=== PATIENT | male | born 1945 | race Caucasian/White ===

== ENCOUNTER 2018-07-27 17:44 | Emergency (ER) | payer OTHER ==
[~2018-07-27] VITALS: Ht 167.6 cm; Wt 85.6 kg
[2018-07-27 17:46] VITALS: Ht 167.6 cm; Wt 85.6 kg
[2018-07-27] MEDS ORDERED: CEFTRIAXONE 1 GM/50 ML (PMX) 50 ML IVPB STA (19:10)
[2018-07-27] MEDS ORDERED: SOD CHLORIDE 0.9% 1,000 ML IV STA (19:10)
[2018-07-27] MEDS ORDERED: PIPER-TAZO 3.375 GM IV (PMX) 100 ML IVPB STA (19:10)
[2018-07-27] MEDS ORDERED: KETOROLAC 15 MG INJ IV STA (19:10)
[2018-07-27] MEDS ORDERED: OXYC-279 PO (20:48)
[2018-07-27] MEDS ORDERED: IBUP-1542 PO ×2 (20:49→23:18)
[2018-07-27] MEDS ORDERED: EXCED PO (20:49)
[2018-07-27] MEDS ORDERED: CEPH-443 PO (23:18)
[2018-07-27 23:30] VITALS: BP 141/85; PULSE 82; RESP 22
--- NOTE | 2018-07-27 23:36 | ERD ---
ER Documentation Chief Complaint Chief Complaint left knee, red, swollen painful, warm, s/p knee replacement & fall HPI 73-year-old man complains of left knee pain, redness, swelling beginning yesterday and getting worse today. Patient fell about 2 days ago and is status post left total knee arthroplasty 2 months ago. He is able to ambulate but states he has pain with ambulation he denies fevers or chills, no paresis or paresthesias, no purulent discharge from the knee or surgical site, no complaints of chest pain or shortness of breath. ROS All systems reviewed and are negative except as per history of present illness. Medications Home Meds Active Scripts Ibuprofen* (Motrin*) 600 Mg Tab, 600 MG PO Q8 PRN for PAIN AND/OR INFLAMMATION, #30 TAB Prov:DELISA JANSEN MD 07/27/18 Cephalexin* (Keflex*) 500 Mg Capsule, 500 MG PO QID for 5 Days, CAP Prov:DELISA JANSEN MD 07/27/18 Reported Medications Acetaminophen/Aspirin/Caffeine* (Excedrin*) 1 Tab Tab, 1 TAB PO Q6, TAB 07/27/18 Ibuprofen* (Ibuprofen*) 600 Mg Tablet, 600 MG PO Q6H PRN for PAIN LEVEL 6-10, TAB 07/27/18 Oxycodone HCl/Acetaminophen (Percocet 5-325 mg Tablet) 1 Each Tablet, 1 EACH PO Q6 PRN for PAIN LEVEL 6-10, TAB 07/27/18 Allergies Allergies: Coded Allergies: No Known Allergy (Unverified , 07/27/18) PMhx/Soc Medical and Surgical Hx: pt denies Medical Hx History of Surgery: Yes (LEFT TKR, APPENDECTOMY ) Anesthesia Reaction: No Hx Neurological Disorder: No Hx Respiratory Disorders: No Hx Cardiac Disorders: No Hx Psychiatric Problems: No Hx Miscellaneous Medical Probl: No Hx Alcohol Use: No Hx Substance Use: No Hx Tobacco Use: No Smoking Status: Never smoker FmHx Family History: No diabetes Physical Exam Vitals Vital Signs Date Temp Pulse Resp B/P (MAP) Pulse Ox O2 O2 Flow FiO2 Time Delivery Rate 07/27/18 98.4 80 22 150/89 100 Room Air 19:19 (109) 07/27/18 98.8 90 18 164/87 97 17:46 (112) Physical Exam Const: No acute distress, mild discomfort, afebrile Head: Atraumatic Eyes: Normal Conjunctiva ENT: Normal External Ears, Nose and Mouth. Neck: Full range of motion. No meningismus. Resp: Clear to auscultation bilaterally Cardio: Regular rate and rhythm, no murmurs Abd: Soft, non tender, non distended. Normal bowel sounds Skin: Left knee surgical site appears clean and dry without purulent drainage or discharge, around the surgical site is blanching erythema and calor extending up to the mid inner left thigh, Back: No midline or flank tenderness Ext: No cyanosis, or edema, calves are bilaterally symmetrical, distal pulses equal bilateral Neur: Awake and alert x3, no focal deficits or facial asymmetry Psych: Normal Mood and Affect Result Diagram: 07/27/18191907/27/181919 Results 24 hrs Laboratory Tests Test 07/27/18 19:20 White Blood Count 9.6 10^3/ul Red Blood Count 3.91 10^6/ul Hemoglobin 11.2 g/dl Hematocrit 35.8 % Mean Corpuscular Volume 91.6 fl Mean Corpuscular Hemoglobin 28.6 pg Mean Corpuscular Hemoglobin Concent 31.3 g/dl Red Cell Distribution Width 13.9 % Platelet Count 245 10^3/UL Mean Platelet Volume 9.9 fl Immature Granulocytes % 0.500 % Neutrophils % 69.6 % Lymphocytes % 17.2 % Monocytes % 8.3 % Eosinophils % 3.7 % Basophils % 0.7 % Nucleated Red Blood Cells % 0.0 /100WBC Immature Granulocytes # 0.050 10^3/ul Neutrophils # 6.7 10^3/ul Lymphocytes # 1.7 10^3/ul Monocytes # 0.8 10^3/ul Eosinophils # 0.4 10^3/ul Basophils # 0.1 10^3/ul Nucleated Red Blood Cells # 0.0 10^3/ul Erythrocyte Sedimentation Rate 17 mm/Hr Prothrombin Time 13.6 Sec Prothrombin Time Ratio 1.1 INR International Normalized Ratio 1.03 Activated Partial Thromboplast Time 34.0 Sec Sodium Level 140 mmol/L Potassium Level 4.2 mmol/L Chloride Level 106 mmol/L Carbon Dioxide Level 28 mmol/L Anion Gap 6 Blood Urea Nitrogen 33 mg/dl Creatinine 1.11 mg/dl Est Glomerular Filtrat Rate mL/min mL/min Glucose Level 98 mg/dl Calcium Level 9.1 mg/dl Total Bilirubin 0.2 mg/dl Direct Bilirubin 0.00 mg/dl Indirect Bilirubin 0.2 mg/dl Aspartate Amino Transf (AST/SGOT) 20 IU/L Alanine Aminotransferase (ALT/SGPT) 21 IU/L Alkaline Phosphatase 82 IU/L C-Reactive Protein 6.6 mg/dl Total Protein 6.8 g/dl Albumin 3.6 g/dl Globulin 3.20 g/dl Albumin/Globulin Ratio 1.12 Lipase 50 U/L Current Medications Medications Dose Sig/Ever Start Time Status Last (Trade) Ordered Route PRN Stop Time Admin Dose Reason Admin Sodium 1,000 ml @ Q1H STAT 07/27/18 DC 07/27/18 Chloride 1,000 mls/hr IV 19:10 07/27/18 20:02 20:09 Ketorolac 15 mg ONCE STAT 07/27/18 DC 07/27/18 Tromethamine IV 19:10 07/27/18 20:03 (Toradol) 19:14 Ceftriaxone 50 ml @ ONCE STAT 07/27/18 DC 07/27/18 Sodium 100 mls/hr IVPB 19:10 07/27/18 20:03 19:39 Piperacillin 100 ml @ ONCE STAT 07/27/18 DC 07/27/18 Sod/ 200 mls/hr IVPB 19:10 07/27/18 20:29 Tazobactam 19:39 Sod Procedures/MDM IV line was established patient was placed on personnel monitor rhythm strip revealed a sinus rhythm at about 80 bpm with upright P and T waves. Patient was afebrile I do not suspect septic arthritis as patient is able to flex and extend at the knee, my concern is for cellulitis so I administered Zosyn 3.375 g IV x1 Lower extremity Doppler ultrasound was performed all veins were compressible, negative for left DVT Three-view x-ray of the left knee performed, there is no acute fracture or hardware migration, no soft tissue gas. CBC was normal, electrolytes revealed a BUN/creatinine of 33/1.1, coagulation profile normal I spoke to the patient's orthopedic surgeon Dr. Tae Saldaña regarding the patient's presentation, symptomatology, labs, and imaging studies. He also reviewed text images of the patient's left knee which were obtained by me with consent of the patient. He does not think that this is consistent with septic arthritis or infected hardware but requested ESR and CRP levels. Dr. Saldaña felt the erythema to the skin of the left knee is most likely due to localized reaction due to Quill barbed sutures ESR level was low at 17, CRP elevated at 6.6, Dr. Saldaña then recommended he see the patient in his office on Monday and also recommended oral antibiotics until follow-up on Monday. Above recommendations were given to the patient and they agreed to follow-up with her surgeon Monday and agreed to use antibiotics as directed. Patient feels much better at this time, and vital signs are normal, symptoms have improved. I did give strict instructions to return to the ED if symptoms continue or worsen, patient will otherwise follow-up with primary care physician. Patient understood instructions and agreed to plan. Disclaimer: Inadvertent spelling and grammatical errors are likely due to EHR/dictation software use and do not reflect on the overall quality of patient care. Also, please note that the electronic time recorded on this note does not necessarily reflect the actual time of the patient encounter. Departure Diagnosis: Primary Impression: Postoperative pain Additional Impressions: Cellulitis of knee Suture reaction Encounter type: initial encounter Qualified Codes: T81.89XA - Other complications of procedures, not elsewhere classified, initial encounter Condition: Good Patient Instructions: Cellulitis, Post Op Wound Check, Pain Referrals: BRIDGER SALDAÑA MD, DAVID MD Jul 27, 2018 23:36
== END 2018-07-27 23:32 | disposition home or self-care (01) ==
LOC: E/R 17:44
DX: G89.18 Other acute postprocedural pain (principal); L03.116 Cellulitis of left lower limb; T81.89XA Other complications of procedures, not elsewhere classified, initial encounter; Y79.3 Surgical instruments, materials and orthopedic devices (including sutures) associated with adverse incidents; Z96.652 Presence of left artificial knee joint
CPT/HCPCS: 73562; 80053; 83690; 85025; 85610; 85651; 85730; 86140; 87070; 93971; J0696; J1885; J2543; J7030; 36415; 96374; 96375